=== PATIENT | female | born 1950 | race Caucasian/White ===

== ENCOUNTER 2017-12-02 11:14 | Emergency (ER) | payer OTHER, MEDICARE ==
[2017-12-02 11:22] VITALS: BP 120/83
[2017-12-02] MEDS ORDERED: IBUPROFEN 600 MG TAB PO ONE (11:48)
--- NOTE | 2017-12-02 11:59 | EDPHY ---
H & P Time Seen by Provider: 12/02/17 11:41 HPI/ROS: CHIEF COMPLAINT: Right wrist pain HISTORY OF PRESENT ILLNESS: 67-year-old [id number] female with out-of- date tetanus visiting from [facility], was hiking today when she sustained a mechanical trip and fall on rocks landing on her outstretched right arm patient is complaining of right wrist pain. She is able to ambulate and walk out. She also sustained left anterior knee abrasion with no underlying osseous discomfort. No head injury. No paresthesia to the fingers. Reproducible pain to the wrist with range of motion of the right fingers. PRIMARY CARE PROVIDER: REVIEW OF SYSTEMS: A ten point review of systems was performed and is negative with the exception of the items mentioned in the HPI PHYSICAL EXAM (Prior to examination, patient consented to physical exam, hands were washed and my usual and customary physical exam procedures followed) 1) GENERAL: Well-developed, well-nourished, alert and oriented. Appears nontoxic answering questions appropriately. 2) HEAD: Normocephalic 3) HEENT: Pupils equal, round, reactive to light bilaterally. 4) LUNGS: Breathing comfortably. 5) MUSCULOSKELETAL: Soft compartments. Normal coloration. 6) SKIN: Abrasion to the left anterior knee with full pain-free range of motion. No abrasion or laceration or puncture wound to the right wrist. 7) VASCULAR: pulses and cap refill present are brisk 8) NEUROLOGIC: Radial, ulnar, median nerve function intact with no deficits appreciated on exam DIFFERENTIAL DIAGNOSIS: in no particular order including but not limited to fracture, sprain, compartment syndrome Smoking Status: Never smoked Constitutional: Initial Vital Signs Temperature (C) 36.6 C 12/02/17 11:19 Heart Rate 65 12/02/17 11:19 Respiratory Rate 18 12/02/17 11:19 Blood Pressure 120/83 H 12/02/17 11:19 O2 Sat (%) 96 12/02/17 11:19 O2 Delivery Mode Room Air Allergies/Adverse Reactions: Sulfa (Sulfonamide Antibiotics) Allergy (Verified 12/02/17 11:19) Home Medications: Medication Instructions Recorded Ondansetron Odt [Zofran Odt] 4 mg PO Q4PRN PRN #7 tab 12/02/17 oxyCODONE/APAP 5/325 [Percocet 1 tab PO Q6 #7 tab 12/02/17 5/325] MDM/Departure - [facility] Imaging Results: Imaging Impressions Wrist X-Ray 12/02/17 11:22 Impression:1. Transverse distal radial fracture. 2. Possible injury to the scapholunate ligament. Images reviewed myself Procedures: Procedure: Splint A sugar-tong Orthoglass splint and sling was applied by ER groundwater monitoring technician. After application of the splint I returned and re-examined the patient. The splint was adequately immobilizing the joint and distal to the splint the patient's circulation and sensation were intact. Patient shows no signs of compartment syndrome. Was given orthopedic precautions. Medications Given: Discontinued Medications Diphtheria/Tetanus/Acell Pertussis (Boostrix) 0.5 ml IM .ONCE ONE Stop: 12/02/17 12:05 Last Admin: 12/02/17 12:17 Dose: 0.5 ml Ibuprofen (Motrin) 600 mg PO EDNOW ONE Stop: 12/02/17 11:49 Last Admin: 12/02/17 12:02 Dose: 600 mg ED Course/Re-evaluation: No evidence of compartment syndrome. Neurovascularly intact. She will need follow-up with orthopedic surgeon when she returns to [place] tomorrow. Given copies of her x-rays. Given prescription for Percocet as well as Zofran should she develop nausea on the drive back to [place]. My usual customary orthopedic and wound precautions instructions provided. Tetanus updated. I saw this patient independently based on established practice protocols. Care of patient under supervision of secondary supervising physician Dr Germain . - Depart Disposition: Home, Routine, Self-Care Clinical Impression: Right wrist fracture Qualifiers: Encounter type: initial encounter Fracture type: closed Qualified Code(s): S62.101A - Fracture of unspecified carpal bone, right wrist, initial encounter for closed fracture Condition: Good Instructions: Wrist Fracture in Adults (ED) Additional Instructions: Return to the ER immediately if you experience discoloration, have worsening pain, numbness, tingling, or any other symptoms that concern you. If you received x-rays in the emergency department today, be advised, that ligamentous , tendon, muscular, and other non-bony injury cannot be fully ruled out. Try to keep your affected extremity elevated above the level of your chest, and keep cold packs on the affected area, for the next 48 hours. Prescriptions: Ondansetron Odt [Zofran Odt] 4 mg PO Q4PRN PRN #7 tab PRN Reason: Nausea oxyCODONE/APAP 5/325 [Percocet 5/325] 1 tab PO Q6 #7 tab Referrals: Daniel Avitia MD [Medical Doctor] - 2-3 days, call for appt. (You may also follow up with the orthopedic surgeon of your choice in [place])
[2017-12-02] MEDS ORDERED: TDAP ADULT 0.5 ML INJ (BOOSTRIX) IM ONE (12:04)
== END 2017-12-02 12:43 | disposition home or self-care (01) ==
DX: S62.101A Fracture of unspecified carpal bone, right wrist, initial encounter for closed fracture (principal); Z23 Encounter for immunization; W01.0XXA Fall on same level from slipping, tripping and stumbling without subsequent striking against object, initial encounter; Y99.8 Other external cause status; Y93.01 Activity, walking, marching and hiking
CPT/HCPCS: 73110; 90471; 90715; 99284; A4565